=== PATIENT | male | born 1955 | race Caucasian/White ===

== ENCOUNTER 2017-05-28 10:43 | Emergency (ER) | payer MEDICAID ==
[2017-05-28] MEDS ORDERED: Ondansetron INJ* 2 MG/ML VIAL IV ONE (10:50)
[2017-05-28] MEDS ORDERED: Morphine INJ* 4 MG/ML 1 ML SYRINGE IV ONE (10:50)
[2017-05-28] MEDS ORDERED: NS 0.9% 1000 ML* 2,000 ML IV ONE (10:50)
[2017-05-28 11:21] LABS: Hematocrit 47 % (42-52); Hemoglobin 15.6 g/dl (14.0-18.0); Mean Corpuscular HGB Conc 33 g/dl (31-36); Mean Corpuscular Hemoglobin 29 pg (27-31); Mean Corpuscular Volume 87 fL (80-94); Mean Platelet Volume 8 um3 (7.4-10.4); Red Blood Count 5.37 10^6/ul (4.0-5.4); Red Cell Distribution Width 14 % (10.5-15); White Blood Count 19.9 10^3/ul (3.5-10.8)
[2017-05-28 11:35] LABS: Albumin 4.2 g/dL (3.2-5.2); C Reactive Protein 27.79 mg/L (< 5.00); Calcium 9.9 mg/dL (8.6-10.3); EGFR African American 140.9 (>60); EGFR Non-African American 109.6 (>60); Globulin 3.4 g/dL (2-4); Potassium 3.8 mmol/L (3.5-5.0); Total Bilirubin 0.6 mg/dL (0.2-1.0); Total Protein 7.6 g/dL (6.4-8.9)
--- NOTE | 2017-05-28 18:44 | ED ---
I, Oh,Gurmeet, scribed for Mark Hernandez MD on 05/28/17 at 1157 . Abdominal Pain/Male - HPI Summary HPI Summary: This 61 y/o male presents to ED for diffuse abd pain and n/v since 2 weeks ago. Pt was prescribed with abx and abd discomfort was alleviated for a while. Pt decided to visit ED when he completed and abd treatment 4 days ago and abd came back yesterday around 1800 PM. Vomiting makes pain better. Pt is not currently on prednisone. Positive constipation, n/v x5 today. Last BM was 2 WEEKS ago. PMHx includes known diverticulitis. Appendix and gallbladder still intact. FHx is positive for diverticulitis. Last colonscopy was 2 years ago. Plan of care involving CT scan is discussed with pt. Pt has upcoming graduation libertarian today, and is wondering about r/b/a. Concerns over elevated WBC and CRP is expressed to pt and family member/friend present at bedside. - History of Current Complaint Chief Complaint: EDAbdPain Stated Complaint: ABD PAIN/NAUSEA Time Seen by Provider: 05/28/17 11:20 Hx Obtained From: Patient Onset/Duration: Still Present Timing: Constant Pain Intensity: 8 Pain Scale Used: 0-10 Numeric Location: Diffuse Aggravating Factor(s): Nothing Alleviating Factor(s): Vomiting Associated Signs And Symptoms: Positive: Fever, Constipation, Nausea, Vomiting - Allergies/Home Medications Allergies/Adverse Reactions: Allergies Allergy/AdvReac Type Severity Reaction Status Date / Time No Known Allergies Allergy Verified 05/28/17 11:14 PMH/Surg Hx/FS Hx/Imm Hx GI History: Reports: Other GI Disorders - diverticulitis Infectious Disease History: No Infectious Disease History: Denies: Traveled Outside the [place] in Last 30 Days - Family History Known Family History: Positive: Other - Diverticulitis - Social History Alcohol Use: None Substance Use Type: Reports: None Smoking Status (MU): Never Smoked Tobacco Review of Systems Positive: Fever - subjective, Chills - subjective Negative: Cough Positive: Abdominal Pain, Vomiting - x5 today, Nausea, Other - constipation since TWO WEEKS Negative: dysuria All Other Systems Reviewed And Are Negative: Yes Physical Exam - Summary Physical Exam Summary: The patient is well-nourished in no acute distress and in no acute pain. The skin is warm and dry and skin color reflects adequate perfusion. Non diaphoretic. Non cyanotic. HEENT: The head is normocephalic and atraumatic. The pupils are equal and reactive. The conjunctivae are clear and without drainage. Nares are patent and without drainage. Mouth reveals DRY mucous membranes and the throat is without erythema and exudate. The external ears are intact. The ear canals are patent and without drainage. The tympanic membranes are intact. Neck is supple with full range of motion and non-tender. There are no carotid bruits. There is no neck vein distension. Respiratory: Chest is non-tender. Lungs are clear to auscultation and breath sounds are symmetrical and equal. Cardiovascular: Heart is regular rate and rhythm. There is no murmur or rub auscultated. There is no peripheral edema and pulses are symmetrical and equal. Abdomen: The abdomen is soft and non-tender. There are normal bowel sounds heard in all four quadrants and there is no organomegaly palpated. Negative CVA tenderness. Positive abd distension. Marked tenderness over traverse and ascending colon. Musculoskeletal: There is no back pain noted. Extremities are non-tender with full range of motion. There is good capillary refill. There is no peripheral edema or calf tenderness elicited. Neurological: Patient is alert and oriented to person, place and time. The patient has symmetrical motor strength in all four extremities. Cranial nerves are grossly intact. Deep tendon reflexes are symmetrical and equal in all four extremities. Psychiatric: The patient has an appropriate affect and does not exhibit any anxiety or depression. Triage Information Reviewed: Yes Vital Signs On Initial Exam: Initial Vitals Temp Pulse Resp BP Pulse Ox 97.8 F 105 17 127/98 98 05/28/17 10:45 05/28/17 10:45 05/28/17 10:45 05/28/17 10:45 05/28/17 10:45 Vital Signs Reviewed: Yes - [place] Coma Scale Coma Scale Total: 15 Diagnostics - Vital Signs Vital Signs Temp Pulse Resp BP Pulse Ox 05/28/17 11:15 19 05/28/17 10:45 97.8 F 105 17 127/98 98 - Laboratory Lab Results: Lab Results 05/28/17 05/28/17 05/28/17 Range/Units 11:10 11:10 11:10 WBC 19.9 H (3.5-10.8) 10^3/ul RBC 5.37 (4.0-5.4) 10^6/ul Hgb 15.6 (14.0-18.0) g/dl Hct 47 (42-52) % MCV 87 (80-94) fL MCH 29 (27-31) pg MCHC 33 (31-36) g/dl RDW 14 (10.5-15) % Plt Count 521 H (150-450) 10^3/ul MPV 8 (7.4-10.4) um3 Neut % (Auto) 89.0 H (38-83) % Lymph % (Auto) 5.4 L (25-47) % [place] % (Auto) 5.4 (1-9) % Eos % (Auto) 0 (0-6) % Baso % (Auto) 0.2 (0-2) % Absolute Neuts (auto) 17.7 H (1.5-7.7) 10^3/ul Absolute Lymphs (auto) 1.1 (1.0-4.8) 10^3/ul Absolute Monos (auto) 1.1 H (0-0.8) 10^3/ul Absolute Eos (auto) 0 (0-0.6) 10^3/ul Absolute Basos (auto) 0 (0-0.2) 10^3/ul Absolute Nucleated RBC 0.01 10^3/ul Nucleated RBC % 0.1 Sodium 135 (133-145) mmol/L Potassium 3.8 (3.5-5.0) mmol/L Chloride 101 (101-111) mmol/L Carbon Dioxide 24 (22-32) mmol/L Anion Gap 10 (2-11) mmol/L BUN 8 (6-24) mg/dL Creatinine 0.73 (0.67-1.17) mg/dL Est GFR ( Amer) 140.9 (>60) Est GFR (Non-Af Amer) 109.6 (>60) BUN/Creatinine Ratio 11.0 (8-20) Glucose 159 H (70-100) mg/dL Lactic Acid 1.6 (0.5-2.0) mmol/L Calcium 9.9 (8.6-10.3) mg/dL Total Bilirubin 0.60 (0.2-1.0) mg/dL AST 29 (13-39) U/L ALT 48 (7-52) U/L Alkaline Phosphatase 69 (34-104) U/L C-Reactive Protein 27.79 H (< 5.00) mg/L Total Protein 7.6 (6.4-8.9) g/dL Albumin 4.2 (3.2-5.2) g/dL Globulin 3.4 (2-4) g/dL Albumin/Globulin Ratio 1.2 (1-3) Lipase 21 (11.0-82.0) U/L Result Diagrams: 05/28/17 11:10 05/28/17 11:10 Lab Statement: Any lab studies that have been ordered have been reviewed, and results considered in the medical decision making process. Re-Evaluation - Re-Evaluation First Eval Re-Evaluation Time: 12:05 Comment: Hard copies of lab work is shared and reviewed with pt. Abdominal Pain Fem Course/Dx - Course Assessment/Plan: his 61 y/o male presents to ED for 2 weeks old constipation and diffuse abd pain. Upon physical examination pt is noted with positive abd distension and marked tenderness over traverse and ascending colon. Negative tenderness over descending colon. Pt is planning to attend graduation event this afternoon around 2 pm today, and is not inclined to stay for CT scan. Medical risk of possible perforation and infection/inflammation given his known hx of diverticulitis and elevated WBC is shared. Pt still expresses to sign out AMA. Pt is strongly encouraged to come back if abd pain, fever, or n/v persist or worsens. - Diagnoses Differential Diagnosis/HQI/PQRI: Diverticulitis, Other - perforation of diverticuli, abscess Provider Diagnoses: Abdominal pain, History of diverticulitis, Left against medical advice Discharge - Discharge Plan Condition: Stable Disposition: AGAINST MEDICAL ADVICE Patient Education Materials: Abdominal Pain (ED), Against Medical Advice (ED) Referrals: David KING MD,Ben Oropeza [Primary Care Provider] - 2 Days The documentation as recorded by the Royer marley Soohyun accurately reflects the service I personally performed and the decisions made by me, Mark Hernandez MD.
== END 2017-05-28 12:19 | disposition left against medical advice (07) ==
LOC: ED 10:43
DX: R10.9 Unspecified abdominal pain (principal)
CPT/HCPCS: 36415; 80053; 83605; 83690; 85025; 86140; 96361; 96374; 96375; 99282; J2270; J2405